=== PATIENT | female | born 1975 | race Two or more races ===

== ENCOUNTER 2021-12-28 11:20 | Outpatient (CLI) | payer OTHER | END 2021-12-28 11:22 | disposition home or self-care (01) | LOC: PPH VACUNA 11:20 | PROVIDERS: ATTEND Emergency Medicine Pediatric Emergency Medicine | DX: Z23 Encounter for immunization (principal) ==

== ENCOUNTER 2022-06-21 09:05 | Emergency (ER) | payer OTHER ==
[~2022-06-21] VITALS: Ht 167.6 cm; Wt 77.1 kg
== END 2022-06-21 11:49 | disposition home or self-care (01) ==
LOC: ER 09:05
DX: I10 Essential (primary) hypertension (principal)

== ENCOUNTER 2023-01-09 12:16 | Outpatient (CLI) | payer OTHER | END 2023-01-09 12:19 | disposition home or self-care (01) | LOC: MAMO-SONO 12:16 | PROVIDERS: ATTEND Surgery | DX: N60.11 Diffuse cystic mastopathy of right breast (principal); N60.12 Diffuse cystic mastopathy of left breast; Z12.31 Encounter for screening mammogram for malignant neoplasm of breast ==

== ENCOUNTER 2023-03-11 11:00 | Outpatient (CLI) | payer OTHER | END 2023-03-11 11:10 | disposition home or self-care (01) | LOC: PPH VACUNA 11:00 | PROVIDERS: ATTEND Emergency Medicine Pediatric Emergency Medicine | DX: Z23 Encounter for immunization (principal) | CPT/HCPCS: 90686; G0008 ==

== ENCOUNTER 2024-01-13 11:42 | Outpatient (CLI) | payer OTHER | END 2024-01-13 11:45 | disposition home or self-care (01) | LOC: MAMO-SONO 11:42 | PROVIDERS: ATTEND Surgery | DX: N60.11 Diffuse cystic mastopathy of right breast (principal); N60.12 Diffuse cystic mastopathy of left breast ==

== ENCOUNTER 2024-02-09 10:45 | Outpatient (CLI) | payer OTHER | END 2024-02-09 10:55 | disposition home or self-care (01) | LOC: PPH VACUNA 10:45 | PROVIDERS: ATTEND Emergency Medicine Pediatric Emergency Medicine | DX: Z23 Encounter for immunization (principal) ==